=== PATIENT | male | born 1955 | race Caucasian/White ===

== ENCOUNTER → 2019-04-18 | Outpatient (CLI) | payer OTHER ==
[~2019-04-18] MED LIST: ADULT LOW DOSE81 MG PO; ASPIR 8181 MG PO; CENTRUM SILVER1 EAC2 PO; FENOFIBRIC ACID PO; FISHOIL; LISINOPRIL10 MG PO; OMEGA-31000 M1 PO; TYLENOL325 MG PO; ZESTORETIC 20-1 EAC3 PO; ZOCOR 10 MG TAB10 MG PO
== END ==
LOC: SJCVCIMAG 07:35
DX: I08.8 Other rheumatic multiple valve diseases (principal); I48.0 Paroxysmal atrial fibrillation; I10 Essential (primary) hypertension; E78.5 Hyperlipidemia, unspecified; E11.9 Type 2 diabetes mellitus without complications; Z87.891 Personal history of nicotine dependence; Z79.899 Other long term (current) drug therapy; Z88.0 Allergy status to penicillin; Z88.1 Allergy status to other antibiotic agents

== ENCOUNTER 2019-05-15 12:09 | Inpatient (IN) | payer OTHER ==
[~2019-05-15] VITALS: Ht 193 cm; Wt 120.2 kg
[2019-05-15 12:12] VITALS: BP 130/83
[2019-05-15 12:58] VITALS: BP 130/83
[2019-05-15 13:03] LABS: ABSOLUTE NEUTROPHILS 4.7 thou/uL (1.4-8.2); BASOPHILS 0.9 % (0.0-2.0); EOSINOPHILS 1.4 % (0.0-3.0); HEMATOCRIT 50.3 % (42.0-52.0); HEMOGLOBIN 17.1 gm/dL (14.0-18.0); LYMPHOCYTES 28.4 % (24.0-44.0); MCH 32.4 pg (26.0-34.0); MCHC 34.1 g/dL (28.0-37.0); PLATELET COUNT 207 thou/uL (150-400); POLYS 62.3 % (36.0-66.0); RBC 5.29 mil/uL (4.50-6.00); RDW 12.5 % (10.5-14.5); WBC 7.5 thou/uL (4.0-11.0)
[2019-05-15 13:10] LABS: CREATININE 0.8 mg/dL (0.7-1.3)
[2019-05-15 13:12] LABS: POTASSIUM 4.3 mmol/L (3.5-5.1)
[2019-05-15 13:21] LABS: INR 1.1; PROTIME 11.7 Seconds (9.3-11.4)
[2019-05-15] MEDS ORDERED: TAMSULOSIN HCL0.4 MG PO (14:22)
[2019-05-15] MEDS ORDERED: PRADAXA150 MG PO (14:23)
[2019-05-15] MEDS ORDERED: LUNESTA3 MG PO (14:23)
[2019-05-15] MEDS ORDERED: TRAZODONE HCL100 MG PO (14:24)
[2019-05-15] MEDS ORDERED: METFORMIN HCL1000 MG PO (14:25)
--- NOTE | 2019-05-15 14:42 | NUR ---
ASSUMED CARE OF PT AT APPROX 1400. A DIRECT ADMIT THROUGH ER FOR SCREENING. ADMISSION INTERVENTIONS COMPLETE. PT A&OX4, NO C/O PAIN OR SOA. PT UP AD LAMONTE. HERE FOR CARDIOVERSION D/T AFIB W RVR NOT RESPONDING TO MEDS. WILL CONTINUE TO MONITOR AND FOLLOW POC.
[2019-05-15 14:46] LABS: APTT 46.2 Seconds (24.5-32.8)
[2019-05-15 14:49] LABS: TOTAL BILIRUBIN 0.6 mg/dL (<0.1-1.0); TOTAL PROTEIN 7.3 g/dL (6.4-8.2)
--- NOTE | 2019-05-15 16:12 | EKG ---
[facility] [place] [address] ELECTROCARDIOGRAM REPORT Name: YANETH FLORENCE Room #: 212- ADM IN M.R.#: [id number] Admission: 05/15/19 Attend Phys: Jeromy Huffman Discharge: Date of : 57 Report #: [id number] THIS REPORT FOR: cc: Issa Lorenzo David J. DO Couchonnal, Luis F. MD ~ THIS REPORT FOR: //name// [facility] ED Test Date: 2019-05-15 Test Time: 12:01:01 Pat Name: YANETH FLORENCE Department: Room: [facility] Gender: M City Mail Carrier: HOMA : 1955 Requested By: Marley Corral Order Number: [id number] MD: Marcus Chavira Measurements Intervals [place] Rate: 131 P: NV: QRS: 11 QRSD: 119 T: 32 QT: 331 QTc: 489 Interpretive Statements Atrial fibrillation Probable left ventricular hypertrophy Borderline prolonged QT interval Compared to ECG 06/21/2009 19:27:02 Sinus rhythm no longer present Electronically Signed On 05-15-2019 16:11:06 CDT by Marcus Chavira [email or web address] <ELECTRONICALLY SIGNED> By: Marcus Chavira MD 05/15/19 1611 1201 1201 Marcus Chavira MD /EPI
--- NOTE | 2019-05-15 18:36 | NUR ---
BEGAN AMIODARONE DRIP AT APPROX 1430. PT CALLED ABOUT 10 MINUTES LATER REPORTING SHARP PAIN IN LEGS, ELBOWS AND BACK OF NECK. STOPPED INFUSION AND REPORTED TO DR. ANGULO WHO SAID TO DC AMIODARONE AND START FLECANIDE PO. PT REPORTED FEELING BETTER SHORTLY AFTER STOPPING INFUSION. NO MORE C/O PAIN. HEART RATES INCREASE TO 120-150 WITH ACTIVITY. WILL CONTINUE TO MONITOR AND MONITOR POC.
[2019-05-15 19:46] VITALS: BP 111/80
[2019-05-16 04:09] VITALS: BP 142/99
--- NOTE | 2019-05-16 06:38 | NUR ---
ASSESSMENTS CHARTED, MEDS GIVEN CHARTED. PATIENT REMAINS IN AFIB DURING SHIFT. ELEVATED HEART RATE WHEN EVERY HE GETS UP AND WALK AROUND. HAS BEEN NPO SINCE MIDNIGHT FOR CARDIOVERSION THIS MORNING. UP AT LAMONTE IN ROOM. DENIES PAIN.
[2019-05-16 08:00] VITALS: BP 141/71
[2019-05-16] MEDS ORDERED: FLECAINIDE ACET50 M2 PO (16:22)
[2019-05-16 16:50] VITALS: BP 141/71
--- NOTE | 2019-05-16 17:14 | NUR ---
ASSUMED CARE OF PT AT SHIFT CHANGE. ASSESSMENT CHARTED. MEDS GIVEN PER APR. PT A&OX4. NO C/O PAIN. RETURNED FROM A SUCCESSFUL CARDIOVERSION D/T AFIB W RVR IN THE AFTERNOON. WAS IN SR AT DISCHARGE. DISCHRGE ORDERS AND INSTRUCTIONS COMPLETE. IV AND TELE DC'D. WALKED PT OUT WITH WAITING IN CAR.
[2019-05-16 17:17] VITALS: BP 141/71
== END 2019-05-16 17:09 | disposition home or self-care (01) | DRG 310 ==
LOC: ER 12:09 → EROBS 13:09 → 2N 13:09
PROVIDERS: Nurse Practitioner Family; ADMIT Internal Medicine
PROC: 5A2204Z Restoration of Cardiac Rhythm, Single (ICD-10-PCS; principal; 2019-05-15)
DX: I48.91 Unspecified atrial fibrillation (principal); J30.2 Other seasonal allergic rhinitis; Z79.01 Long term (current) use of anticoagulants; Z88.5 Allergy status to narcotic agent; Z88.0 Allergy status to penicillin; Z88.8 Allergy status to other drugs, medicaments and biological substances; Z98.52 Vasectomy status; Z90.89 Acquired absence of other organs; Z90.49 Acquired absence of other specified parts of digestive tract; Z79.82 Long term (current) use of aspirin; Z79.84 Long term (current) use of oral hypoglycemic drugs; Z79.899 Other long term (current) drug therapy
CPT/HCPCS: 10081

== ENCOUNTER → 2019-11-03 | Outpatient (CLI) | payer BC, OTHER ==
[~2019-11-03] MED LIST changes: +CARVEDILOL12.5 MG PO; +FLECAINIDE ACET50 M2 PO; +LUNESTA3 MG PO; +METFORMIN HCL1000 MG PO; +PRADAXA150 MG PO; +TAMSULOSIN HCL0.4 MG PO; +TRAZODONE HCL100 MG PO
== END ==
LOC: LAB
PROVIDERS: ATTEND Internal Medicine Cardiovascular Disease
DX: Z01.812 Encounter for preprocedural laboratory examination (principal); Z20.818 Contact with and (suspected) exposure to other bacterial communicable diseases

== ENCOUNTER → 2019-11-06 | Outpatient (CLI) | payer BC, OTHER ==
[~2019-11-06] MED LIST changes: +PACERONE 200 M200 M1 PO
[2019-11-06 15:09] LABS: ABSOLUTE NEUTROPHILS 4.9 thou/uL (1.4-8.2); BASOPHILS 0.9 % (0.0-2.0); EOSINOPHILS 3.5 % (0.0-3.0); HEMATOCRIT 43.6 % (42.0-52.0); HEMOGLOBIN 14.8 gm/dL (14.0-18.0); LYMPHOCYTES 31.1 % (24.0-44.0); MCH 32.3 pg (26.0-34.0); MCV 95.1 fL (80.0-100.0); MONOCYTES 8.6 % (1.0-8.0); PLATELET COUNT 227 thou/uL (150-400); POLYS 55.9 % (36.0-66.0); RBC 4.59 mil/uL (4.50-6.00); RDW 12.4 % (10.5-14.5); WBC 8.7 thou/uL (4.0-11.0)
[2019-11-06 15:20] LABS: ALBUMIN 4.2 g/dL (3.4-5.0); CREATININE 0.9 mg/dL (0.7-1.3); POTASSIUM 4.3 mmol/L (3.5-5.1); TOTAL BILIRUBIN 0.5 mg/dL (0.2-1.0); TOTAL PROTEIN 7.5 g/dL (6.4-8.2)
== END ==
LOC: CAT 12:04
PROVIDERS: ATTEND Internal Medicine Cardiovascular Disease
DX: I25.10 Atherosclerotic heart disease of native coronary artery without angina pectoris (principal); N28.89 Other specified disorders of kidney and ureter; M47.814 Spondylosis without myelopathy or radiculopathy, thoracic region; I48.91 Unspecified atrial fibrillation

== ENCOUNTER → 2019-11-07 | Outpatient (CLI) | payer BC, OTHER ==
[~2019-11-07] VITALS: Ht 193 cm; Wt 120.2 kg
[2019-11-07 07:33] VITALS: BP 159/101
[2019-11-08 07:20] VITALS: BP 151/99
== END | disposition home or self-care (01) ==
LOC: CATH
PROVIDERS: ATTEND Internal Medicine
DX: I48.91 Unspecified atrial fibrillation (principal); I34.9 Nonrheumatic mitral valve disorder, unspecified; I42.9 Cardiomyopathy, unspecified; I10 Essential (primary) hypertension; E11.9 Type 2 diabetes mellitus without complications; Z98.890 Other specified postprocedural states; Z79.899 Other long term (current) drug therapy; Z79.01 Long term (current) use of anticoagulants; Z90.49 Acquired absence of other specified parts of digestive tract; Z98.52 Vasectomy status; Z87.19 Personal history of other diseases of the digestive system; Z88.0 Allergy status to penicillin; Z88.8 Allergy status to other drugs, medicaments and biological substances

== ENCOUNTER 2019-11-08 06:20 | Observation (INO) | payer BC, OTHER ==
[2019-11-08] VITALS (9 sets, daily range): BP systolic 138–149; BP diastolic 80–104
[~2019-11-08] VITALS: Ht 193 cm; Wt 121.7 kg
[~2019-11-08 06:20] MED LIST changes: -PACERONE 200 M200 M1 PO
[2019-11-08 07:24] LABS: ABSOLUTE NEUTROPHILS 3.7 thou/uL (1.4-8.2); BASOPHILS 0.7 % (0.0-2.0); EOSINOPHILS 4.4 % (0.0-3.0); HEMATOCRIT 42.2 % (42.0-52.0); HEMOGLOBIN 14.7 gm/dL (14.0-18.0); LYMPHOCYTES 30.7 % (24.0-44.0); MCHC 34.7 g/dL (28.0-37.0); MONOCYTES 8.2 % (1.0-8.0); PLATELET COUNT 197 thou/uL (150-400); RBC 4.45 mil/uL (4.50-6.00); RDW 12.3 % (10.5-14.5); WBC 6.6 thou/uL (4.0-11.0)
[2019-11-08 07:34] LABS: CALCIUM 8.7 mg/dL (8.5-10.1); CREATININE 0.8 mg/dL (0.7-1.3); POTASSIUM 4.3 mmol/L (3.5-5.1)
[2019-11-08 07:36] LABS: APTT 37.8 Seconds (24.5-32.8); INR 1.1; PROTIME 10.9 Seconds (9.3-11.4)
[2019-11-08 07:39] LABS: ALBUMIN 3.8 g/dL (3.4-5.0); TOTAL BILIRUBIN 0.5 mg/dL (0.2-1.0); TOTAL PROTEIN 7.2 g/dL (6.4-8.2)
--- NOTE | 2019-11-08 18:17 | NUR ---
NEW ADMIT POST ABLATION BY DR WALKER, A/OX4, DENIES CHEST PAIN, DENIES SOB, RIGHT GROIN SIGHT INTACT, DRESSING CHANGED POST STOP COCK REMOVED BY PHYSICIAN. WILDE IRRIGATED POST 6HR BEDREST NO CLOTS NOTED IN WILDE TUBING. WILDE REMOVED WITH 400 OUTPUT. PATIENT TO CALL WHEN HE NEEDS TO URINATE. EDUCATED IF HE IS UNABLE TO URINATE BLADDER SCAN OF GREATER THEN 400 WILDE CATHETER WILL BE INSERTED. POST CARDIAC VS COMPLETED. TX BS 246 PER ORDER. REMAINS IN NSR ON TELE.IV FLUIDS COMPLETED. PT TO LIKELY DC HOME TOMORROW. CALL LIGHT AND PERSONAL ITEMS IN REACH.
[2019-11-09 03:50] VITALS: BP 144/86
[2019-11-09 05:56] LABS: ABSOLUTE NEUTROPHILS 9.6 thou/uL (1.4-8.2); BASOPHILS 0.1 % (0.0-2.0); HEMATOCRIT 38.2 % (42.0-52.0); HEMOGLOBIN 12.8 gm/dL (14.0-18.0); LYMPHOCYTES 10.4 % (24.0-44.0); MCH 32.2 pg (26.0-34.0); MCHC 33.4 g/dL (28.0-37.0); MCV 96.6 fL (80.0-100.0); MONOCYTES 6.6 % (1.0-8.0); PLATELET COUNT 188 thou/uL (150-400); POLYS 82.9 % (36.0-66.0); RBC 3.96 mil/uL (4.50-6.00); RDW 12.6 % (10.5-14.5); WBC 11.6 thou/uL (4.0-11.0)
--- NOTE | 2019-11-09 06:18 | NUR ---
SLEPT MOST OF SHIFT. UP AD LAMONTE WITH STEADY GAIT. RIGHT GROIN SITE DSG DRY AND INTACT. SEE CATH CHECK INTERVENTION. SITE WITHOUT BLEEDING OR HEMOTOMA. WORKING ON GOALS AND PLAN OF CARE FOR NOC. PROGRESSING SLOWLY TOWARDS DISCHARGE GOALS. CONTINUE TO ASSES LEDY. DENIES COMPLAINTS OF PAIN OR SHORTNESS OF AIR.
[2019-11-09 06:28] LABS: CALCIUM 8.8 mg/dL (8.5-10.1); CREATININE 0.8 mg/dL (0.7-1.3); POTASSIUM 4.1 mmol/L (3.5-5.1)
[2019-11-09 07:31] VITALS: BP 147/79
[2019-11-09] MEDS ORDERED: PACERONE 200 M200 M1 PO ×2 (08:19→09:00)
[2019-11-09 10:49] VITALS: BP 147/79
--- NOTE | 2019-11-09 11:31 | NUR ---
ASSUMED CARE PT SHIFT CHANGE. ASSESSMENT CHARTED.MEDS GIVEN PER APR. PT ALERT AND ORIENTED. VSS. DENIES PAIN. R GROIN SITE DRY INTACT MINIMAL DRIED DRAMINAGE. NO HEMATOMA. DC ORDERS ACKNOWLEDGED AND IMPLEMENTED. PAPERWORK DISCUSSED WITH PT COMMUNICATES UNDERSTANDING. IV REMOVED. TELE RMEOVED. PT LEFT UNIT WITH ALL BELONGINGS.
--- NOTE | 2019-11-13 08:14 | P ---
[facility] [place] [address] PROCEDURE REPORT Name: YANETH FLORENCE Room #: 204-P [facility]#: [id number] Admission: 11/08/19 Attend Phys: Marcus Chavira MD Discharge: 11/09/19 Date of : 57 Report #: [id number] THIS REPORT FOR: cc: STEPHANE - Family physician unknown FAM - Family physician unknown Marcus Chavira MD ~ CC: STEPHANE Chavira PREOPERATIVE DIAGNOSIS: Atrial fibrillation. POSTOPERATIVE DIAGNOSIS: Atrial fibrillation. HISTORY: The patient is a 64-year-old who has failed to maintain sinus rhythm despite recent cardioversion, antiarrhythmic drug therapy. He is here for an ablation. ANESTHESIA: The patient underwent general anesthesia with no anesthesia related complications. PROCEDURES PERFORMED: 1. Atrial fibrillation ablation, CPT code 19793. 2. 3D mapping, CPT code 90414. 3. Intracardiac echo, CPT code 63008. 4. Focal ablation, CPT code 87429. PROCEDURE: The patient underwent informed consent. We discussed the details of the procedure including the risks, which include but not limited to bleeding, vascular damage, stroke, MA as well as damage to the chitimacha conduction system requiring permanent pacemaker. He understood these risks and is willing to proceed. DESCRIPTION OF PROCEDURE: The patient was brought to EP laboratory in fasting and sedated state, prepped and draped in sterile fashion. I obtained access to the right femoral vein x 3, placing an 8, 9, 7-Latvian short sheath using the modified Seldinger technique. Next, under fluoroscopy, a decapolar catheter was placed easily in the coronary sinus and an ICE catheter was placed in the right atrium. At baseline, the patient was in atrial fibrillation with a ventricular cycle length of 420 milliseconds, QRS duration 97 milliseconds, QT interval 370 milliseconds. Using intracardiac ultrasound, I created a 3D geometry of the left atrium with evidence of two left and two right pulmonary veins. This was merged with the cardiac CT scan. The patient was systemically heparinized and transseptal was performed using an SL1 sheath and a Cardale needle. The transseptal was straightforward. The SL1 sheath was exchanged for the cryo sheath and a Lasso catheter was placed into the left atrium and a detailed 3D geometry of the left atrium was created. This showed extensive atrial fibrosis throughout. Next, the cryo balloon was placed into the left atrium and the left [facility] [address] [place] [address] PROCEDURE REPORT Name: NAMANYANETH G Room #: 204-P [facility] Cody Espinoza#: [id number] Admission: 11/08/19 Attend Phys: Marcus Chavira MD Discharge: 11/09/19 Date of : 57 Report #: [id number] superior pulmonary vein underwent two 4-minute freezes, which resulted in isolation. The left inferior pulmonary vein underwent a 4-minute freeze, followed by a 60-second freeze, which came off early due to poor temps. I then did a third freeze of 4 minutes' duration, which resulted in isolation within 65 seconds. This last freeze, I angled the balloon on the inferior aspect of the vein and this resulted in isolation. I then put my decapolar catheter up into the subclavian vessel for phrenic nerve pacing. The right superior pulmonary vein underwent a single 4-minute freezes. The vein isolated within 30 seconds. The right inferior pulmonary vein also underwent a single 4-minute freeze as this vein isolated within 25 seconds. Next, I decided to perform posterior wall isolation as well. I performed 3 freezes of the posterior wall, anchored from the left superior pulmonary vein and one freeze anchored from the right superior pulmonary vein. I then went to the left inferior pulmonary vein and performed 3 freezes of the posterior wall from this location and then anchored from the right inferior pulmonary vein and performed a single freeze as well. Next, the voltage map was created and showed that all veins were isolated and the majority of the posterior wall was isolated except for a small strip of activity along the mid posterior roof region. I performed 2 additional freezes at this site and performed a repeat voltage map and there appeared to be improvement in this area. Essentially, the entire pulmonary veins and left atrium were now electrically isolated. The patient was then cardioverted with 200 joules, which resulted in a junctional rhythm. A basic EP study was performed and AV block was noted at 360 milliseconds. Atrial ERP was noted at 210 milliseconds at [address] cycle length. I performed aggressive atrial burst pacing down to 230 milliseconds and I could not induce any AFib, atrial flutter or any other arrhythmias. As such, the procedure was concluded and as sedation wore off, the junctional rhythm resolved and his normal sinus mechanism returned. The patient received systemic protamine and once ACT was within acceptable range, all catheters and sheaths were pulled and hemostasis obtained. [id number] suture with a 3-way stopcock technique was utilized for femoral venous homeostasis. CONCLUSIONS: 1. Successful AFib ablation with isolation of the pulmonary veins. 2. Successful posterior wall isolation. 3. No other inducible arrhythmias post-ablation. <ELECTRONICALLY SIGNED> By: Marcus Chavira MD 11/13/19 0814 1429 1450 Marcus Chavira MD /nt
== END 2019-11-09 11:25 | disposition home or self-care (01) ==
LOC: CATH → 2N 06:52 → CATH 07:48 → 2N 11-09 11:25
PROVIDERS: ADMIT Internal Medicine Cardiovascular Disease; ATTEND Internal Medicine Cardiovascular Disease
DX: I48.91 Unspecified atrial fibrillation (principal); I42.8 Other cardiomyopathies; I10 Essential (primary) hypertension; E11.9 Type 2 diabetes mellitus without complications; I99.9 Unspecified disorder of circulatory system; N28.9 Disorder of kidney and ureter, unspecified; Z79.899 Other long term (current) drug therapy
CPT/HCPCS: 62110; 62900; 65020; 65040; 70005

== ENCOUNTER → 2020-05-29 | Outpatient (CLI) | payer BC, OTHER ==
[~2020-05-29] MED LIST changes: +PACERONE 200 M200 M1 PO
== END ==
LOC: SJCVCIMAG 14:18
PROVIDERS: ATTEND Internal Medicine Cardiovascular Disease
DX: I48.91 Unspecified atrial fibrillation (principal); I10 Essential (primary) hypertension; Z87.891 Personal history of nicotine dependence

== ENCOUNTER → 2020-12-04 | Outpatient (CLI) | payer BC, OTHER ==
[2020-12-04 13:57] VITALS: BP 133/76
--- NOTE | 2020-12-11 13:07 | LINQ ---
[facility] [place] [address] LINQ PROCEDURE REPORT Name: YANETH FLORENCE [id number] Admission: 12/04/20 Attend Phys: Jeromy Huffman Discharge: Date of : 57 Report #: [id number] THIS REPORT FOR: cc: Issa Lorenzo David J. DO Lammoglia, Francisco J. MD ~ APPROVED REPORT Study performed: 12/04/2020 14:43:35 Patient Status: Out-Patient Room #: Event Personnel: Jeromy Huffman MD Exam: Reveal LINQ Insertion Indications: Afib Conscious Sedation Start time: 14:24 End Time: 14:34 No conscious sedation given. 7ml of 2% Lidocaine used Implanted Devices: [employer]: Reveal LINQ Insertion; Model #: LNQ11; Serial #: [id number]; Use by: 2021-09-18 Procedure The patient underwent informed consent. We discussed the details of the procedure including the risks, which include, but not limited to bleeding, infection, vascular damage, cardiac perforation, and pneumothorax. After informed consent was obtained the patient brought to the cardiac catheterization laboratory prepped and hold. Left chest was prepped and draped in usual sterile manner. 1% lidocaine was then instilled in the proposed incision site. Utilizing a 25-gauge spinal needle the proposed deployment tract was anesthetized with 1% lidocaine. Utilizing 11 blade a small quarter of an inch incision was made any with both blunt and sharp dissection a pocket was generated. Utilizing the deployment tool the implantable loop recorder was inserted without difficulty. Palpation to assure no discomfort was performed. Subcutaneous tissue was then closed with 2 simple interrupted sutures and the skin was closed with a subcuticular stitch utilizing 4-0 absorbable suture and Dermabond. Steri-Strips 4 x 4 OpSite were then utilized. Patient tolerated procedure well Findings Estimated Blood Loss: 0 [facility] [address] [place] [address] Second Decimal PROCEDURE REPORT Name: YANETH FLORENCE Room #: REG [facility]#: [id number] Admission: 12/04/20 Attend Phys: Jeromy Wong Discharge: Date of : 57 Report #: [id number] Conclusion 1. Successful insertion of an implantable loop recorder Recommendations 1. Routine post insertion protocol <ELECTRONICALLY SIGNED> By: Jeromy Huffman MD 12/11/20 1307 06 06 Jeromy Huffman MD /INF
== END | disposition home or self-care (01) ==
LOC: CATH 08:17
PROVIDERS: ATTEND Internal Medicine
DX: I48.91 Unspecified atrial fibrillation (principal); Z98.890 Other specified postprocedural states; Z79.899 Other long term (current) drug therapy; Z79.01 Long term (current) use of anticoagulants; Z88.0 Allergy status to penicillin